=== PATIENT | female | born 1965 | race Caucasian/White ===

== ENCOUNTER → 2017-01-13 | Outpatient (CLI) | payer BC ==
[~2017-01-13] MED LIST: ETAN50IN2 SC; FLV1 PO; FRRS300 PO; MEDR10TA PO; METH2.5T PO; NAPR-1169 PO; OMEP20CA59 PO
--- NOTE | 2017-01-13 16:02 | MAMMOGRAPHY REPORT ---
BILATERAL DIGITAL SCREENING MAMMOGRAM TOMOSYNTHESIS WITH CAD: 01/13/2017 CLINICAL HISTORY: Routine screening. Patient has no complaints. TECHNIQUE: Breast tomosynthesis in addition to standard 2D mammography was performed. Current study was also evaluated with a Computer Aided Detection (CAD) system. COMPARISON: Comparison is made to exams dated: 05/07/2014 mammogram, 05/06/2013 mammogram, 05/02/2012 ma mmogram, and 04/08/2011 mammogram - [facility]. BREAST COMPOSITION: The tissue of both breasts is heterogeneously dense, which may obscure small ma sses. FINDINGS: There is questionable architectural distortion seen in the left upper outer quadrant on t he tomosynthesis images, which are in association with grouped punctate calcifications. The calcifi cations are stable dating back to at least the 2007 exam. Recommend spot compression tomosynthesis views, spot magnification views, and possible breast ultrasound for further evaluation. The remainder of both breasts are stable compared to prior exams, without suspicious masses, calcifi cations, or areas of architectural distortion noted. IMPRESSION: ACR BI-RADS CATEGORY 0: INCOMPLETE EVALUATION: NEED ADDITIONAL IMAGING EVALUATION Possible architectural distortion in the left upper outer quadrant, for which additional imaging kaci luation is recommended. The patient will be called to schedule an appointment. Approximately 10% of breast cancers are not detected with mammography. A negative mammographic repor t should not delay biopsy if a clinically suggestive mass is present. Zoie Menjivar M.D. ah/:01/13/2017 15:48:25 Commercial Counsel: Cathie Jovel, [facility] letter sent: Addl Imaging 0 BI-RADS Code: ACR BI-RADS Category 0: Incomplete Evaluation: Need Additional Imaging Evaluation
== END | disposition home or self-care (01) ==
LOC: C.MAMM 10:27
PROVIDERS: ATTEND Family Medicine
DX: Z12.31 Encounter for screening mammogram for malignant neoplasm of breast (principal); R92.8 Other abnormal and inconclusive findings on diagnostic imaging of breast

== ENCOUNTER → 2017-01-20 | Outpatient (CLI) | payer BC ==
--- NOTE | 2017-01-20 14:32 | MAMMOGRAPHY REPORT ---
UNILATERAL LEFT DIGITAL DIAGNOSTIC MAMMOGRAM TOMOSYNTHESIS AND TARGETED LEFT ULTRASOUND: 01/20/2017 CLINICAL HISTORY: 51-year-old woman called back from screening mammography for a possible small foca l area of architectural distortion in the 1:00 left breast, with associated clustered microcalcifica tion. No family history of breast cancer. Patient has a history of rheumatoid arthritis for which she is taking methotrexate and biologics. TECHNIQUE: Spot magnification left CC, ML and spot compression tomosynthesis left CC and MLO views w ere obtained. COMPARISON: Comparison is made to exams dated: 01/13/2017 mammogram - [facility], 07/14/2015 mammogram, 07/14/2015 ultrasound - [facility], and 05/07/2014 mammogram - [facility]. BREAST COMPOSITION: The tissue of the left breast is heterogeneously dense, which may obscure small masses. FINDINGS: There is a 6.6 mm cluster of punctate and round microcalcifications in the 1:00 anterior left breast. None of the calcifications demonstrate layering on the spot magnification MLO view. T he microcatheter indications appear to be associated with the small persistent focal area of archite ctural distortion, best seen on the 01/13/2017 screening mammogram tomosynthesis images, but also se en on the current spot compression MLO tomosynthesis slice 32. No other focal area of architectural distortion or suspicious calcifications are identified in the visualized left breast. This lesion is suspicious for malignancy, warranting further evaluation with tissue sampling. Targeted ultrasound was performed in the 12:00, 1:00, retroareolar, 5:00 and 6:00 axes of the left b reast. There is a very subtle area of possible architectural distortion in the 1:00 left breast, 2 cm from the nipple. However, this finding is surveyed on ultrasound that I would be concerned about under sampling error if utilizing ultrasound guidance for biopsy. Therefore would prefer to target the microcalcifications, which appear to be near the geometric center of the distortion, for tissue sampling with a stereotactic biopsy. IMPRESSION: ACR BI-RADS CATEGORY 4B: INTERMEDIATE SUSPICION FOR MALIGNANCY, TARGETED ULTRASOUND ACR BI-RADS CATEGORY 4B: INTERMEDIATE SUSPICION FOR MALIGNANCY 1. Left breast stereotactic guided biopsy is recommended for a 6.6 mm cluster of microcalcification s located within a focal area of architectural distortion in the 1:00 left breast. Both the calcifi cations and distortion are thought to represent the same lesion. These results and recommendations were discussed with the patient at the time of the exam. She tent atively scheduled the biopsy prior to leaving our department. Approximately 10% of breast cancers are not detected with mammography. A negative mammographic repor t should not delay biopsy if a clinically suggestive mass is present. Rosa Son M.D. ay/:01/20/2017 12:23:02 Mop Worker: Halle Dobson RT(R)(M), [facility] letter sent: Abnormal 4/5 BI-RADS Code: ACR BI-RADS Category 4B: Intermediate Suspicion For Malignancy Ultrasound BI-RADS: AC R BI-RADS Category 4B: Intermediate Suspicion For Malignancy
== END | disposition home or self-care (01) ==
LOC: C.MAMM 11:41
PROVIDERS: ATTEND Family Medicine
DX: N64.9 Disorder of breast, unspecified (principal); R92.0 Mammographic microcalcification found on diagnostic imaging of breast

== ENCOUNTER → 2017-01-27 | Outpatient (CLI) | payer BC ==
--- NOTE | 2017-01-27 13:09 | Discharge Instructions ---
Discharge Instructions Procedure Procedure Date: Jan 27, 2017. Reason for visit: Left Calcifications Arch Distortion. Discharge Discharge Date: Jan 27, 2017. Discharge Diagnosis: status post breast biopsy Instructions Activity Recommendations: Additional Limitations (see below) Return to School/Work: no limitations Recommended Home Diet: No Limitations Provider Instructions: ACTIVITY RECOMMENDATIONS: * No lifting, pushing, pulling or exercising the affected side for three days. RETURN TO SCHOOL/WORK: * You may return to work/school after the procedure, but do not perform any strenuous activities for 24 to 48 hours. MEDICATIONS: * Tylenol (two 325 mg) every four to six hours if needed for mild pain (if not allergic to Tylenol). DIET: * Resume previous diet. SPECIAL CARE INSTRUCTIONS: * Keep biopsy site dry for 24 hours. May shower after 24 hours, but do not soak (bathe) incision. * May remove Tegaderm (plastic patch) tomorrow AFTER showering. * Leave the steri-strips on for one week. Allow the steri-strips to fall off by themselves. If not off after one week, you may remove them. You may place a Bandaid crosswise over the strips, if desired. * Apply ice 10 minutes on and 10 minutes off as needed. * Wear a bra at bedtime to sleep more comfortably for 2-3 days. * Your referring physician should have the results after approximately 5 to 7 business days. * Call for unusual bleeding, fever, drainage, etc or if you have any questions call during normal business hours or after hours call Dr Menjivar, . FOLLOW UP VISIT: Follow-up with Referring Physician as scheduled. Allergies Coded Allergies: Cephalexin (Verified Allergy, Mild, ., 08/10/12) Sulfamethoxazole w/Trimethoprim (Verified Allergy, Unknown, ? sisters allergic to it, 11/02/15) Oliva Pena Recommendations: Call your doctor if: * Temperature above 101 degrees * Pain not relieved by pain medicine ordered * There is increased drainage or redness from any incision * You have any unanswered questions or concerns. Your Doctors Instructions noted above were prepared by provider Zoie Menjivar. Patient Signature Section: Patient Instructions Signature Page Kellie Ingram Patient (or Guardian) Signature/Date: I have read and understand the instructions given to me by my caregivers. Caregiver/RN/Doctor Signature/Date: The above-named patient and/or guardian has received patient instructions on this date. + Original Patient Signature Page (only) stays with chart. Please make copy for patient.
--- NOTE | 2017-01-27 16:29 | MAMMOGRAPHY REPORT ---
UNILATERAL LEFT DIGITAL DIAGNOSTIC MAMMOGRAM: 01/27/2017 CLINICAL HISTORY: Status post left breast stereotactic biopsy. TECHNIQUE: Postprocedural left CC and LM views were obtained. COMPARISON: Comparison is made to exams dated: 01/20/2017 mammogram, 01/13/2017 mammogram - [facility], 07/14/2015 mammogram - [facility], and 05/07/2014 mammogram - [facility]. BREAST COMPOSITION: The tissue of the left breast is heterogeneously dense, which may obscure small masses. FINDINGS: A new biopsy marker clip is seen at the site of the biopsied calcifications in the left 1 2:00 breast. No significant postbiopsy hematoma is seen. IMPRESSION: POST PROCEDURE IMAGING FOR MARKER PLACEMENT New biopsy marker clip status post left breast stereotactic biopsy. Pathology results are pending. Approximately 10% of breast cancers are not detected with mammography. A negative mammographic repor t should not delay biopsy if a clinically suggestive mass is present. Zoie Menjivar M.D. ah/:01/27/2017 13:42:06 Regulatory Compliance Manager: Alannah KEITH(R)(M), [facility] BI-RADS Code: Post Procedure Imaging For Marker Placement
--- NOTE | 2017-01-30 08:20 | MAMMOGRAPHY REPORT ---
THIS REPORT HAS BEEN AMENDED. STEREOTACTIC GUIDED BIOPSY LEFT BREAST: 01/27/2017 CLINICAL HISTORY: Indeterminate calcifications and associated architectural distortion in the left 1 :00 breast. PATIENT CONSENT: The procedure, risks, benefits, and alternatives of stereotactic biopsy with clip p lacement were discussed with the patient, and verbal and written consent was obtained. A timeout wa s performed immediately prior to the procedure. PROCEDURE DESCRIPTION: With stereotactic guidance, aseptic technique, and lidocaine as a local anest hetic (1% lidocaine to anesthetize the skin and 1% lidocaine with epinephrine to anesthetize the perla per tissues), the area of concern was sampled multiple times with a 9-gauge vacuum-assisted biopsy n eedle ([employer] Eviva). The path of approach was lateral. The specimen radiograph demonstrates calcif ications to be present in the samples. A metallic marker clip was placed at the biopsy site. This was confirmed on postprocedure mammograms. Direct pressure was applied at the biopsy site and hemos tasis was readily achieved. The patient tolerated the procedure without complication. She was give n wound care instructions. COMPARISON: Comparison is made to exams dated: 01/20/2017 mammogram, 01/13/2017 mammogram - [facility], 07/14/2015 mammogram - [facility], and 05/07/2014 mammogram - [facility]. IMPRESSION: STEREOTACTIC GUIDED BIOPSY Stereotactic biopsy of indeterminate calcifications and associated architectural distortion in the l eft 1:00 breast, with clip placement. The patient will receive pathology results from her referring provider. Zoie Menjivar M.D. ah/:01/27/2017 13:12:00 Attending Technologist: Cathie Ferguson RT(R)(M), [facility] Senior Sales Consultant: Alannah KEITH(R)(M), [facility] AMENDMENT: 02/08/2017 Zoie Menjivar M.D. The pathology from left breast stereotactic biopsy was reviewed on 02/08/2017. The pathology shows a radial scar with associated microcalcifications, which is concordant with the imaging findings. As stated on the pathology report, radial scars are an indication for surgical excision.
== END | disposition home or self-care (01) ==
LOC: C.MAMM 12:32
PROVIDERS: ATTEND Family Medicine
DX: R92.0 Mammographic microcalcification found on diagnostic imaging of breast (principal)

== ENCOUNTER → 2017-11-08 | Outpatient (CLI) | payer OTHER | END | disposition home or self-care (01) | LOC: C.PAPS 16:32 | PROVIDERS: ATTEND Obstetrics & Gynecology | DX: Z12.4 Encounter for screening for malignant neoplasm of cervix (principal) ==